=== PATIENT | male | born 1940 | race Caucasian/White ===

== ENCOUNTER 2017-10-08 10:25 | Emergency (ER) | payer MEDICARE, MEDICAID ==
[2017-10-08 10:34] VITALS: TEMP 97.9
[2017-10-08] MEDS ORDERED: Piperacillin/Tazobact 3.375 GM in Sodium Chloride 100 ML IVPB SCH (11:15)
[2017-10-08 11:32] LABS: BASO % 0.5 % (0.0-2.0); EOS # 0.1 K/uL (0.0-0.7); EOS % 2.2 % (0.0-4.0); HEMATOCRIT 38.8 % (35.0-51.0); LYMPH % 15.8 % (20.0-40.0); MEAN CELL VOLUME 100.1 fL (80.0-94.0); MEAN CORPUSCULAR HGB CONC 33.9 g/dL (33.0-37.0); MONO # 0.6 K/uL (0.0-0.8); MONO % 9.4 % (0.0-10.0); NRBC % 0.1 % (0.0-2.0); RED CELL DISTRIBUTION WIDTH 14.2 % (11.5-14.5); WHITE BLOOD COUNT 6.1 K/uL (4.8-10.8)
--- NOTE | 2017-10-08 11:39 | C.PDOC ---
History Of Present Illness 77 y/o male presents to ED with c/o gradually increasing mass to the right groin region for 2 weeks. Patient reports drainage of bloody pus from the area yesterday. Denies fever, chills, urinary symptoms, nausea, vomiting, diarrhea. Patients states he has not take medications for current symptoms. PMD: Dr. Maloney Time Seen by Provider: 10/08/17 11:09 Chief Complaint (Nursing): Abnormal Skin Integrity History Per: Patient History/Exam Limitations: no limitations Onset/Duration Of Symptoms: Days Current Symptoms Are (Timing): Still Present Quality Of Symptoms: Swollen, Draining Recent travel outside of the [place]: No Past Medical History Reviewed: Historical Data, Nursing Documentation, Vital Signs Vital Signs: Last Vital Signs Temp 97.9 F 10/08/17 10:31 Pulse 72 10/08/17 10:31 Resp 18 10/08/17 10:31 BP 125/82 10/08/17 10:31 Pulse Ox 100 10/08/17 14:02 - Medical History PMH: Anxiety, HTN, Hypercholesterolemia, Hypothyroidism Surgical History: Coronary Stent - [facility] Procedures CLOSED ENDOSCOPIC BIOPSY OF LARGE INTESTINE (02/19/14) - Social History Hx Alcohol Use: No Hx Substance Use: No - Immunization History Hx Tetanus Toxoid Vaccination: Yes Hx Influenza Vaccination: Yes Hx Pneumococcal Vaccination: Yes Review Of Systems Except As Marked, All Systems Reviewed And Found Negative. Constitutional: Negative for: Fever, Chills Gastrointestinal: Negative for: Nausea, Vomiting, Abdominal Pain, Diarrhea Genitourinary: Negative for: Dysuria, Hematuria Skin: Positive for: Other (skin changes R groin). Negative for: Rash Physical Exam - Physical Exam Appears: Non-toxic, No Acute Distress Skin: Warm, Dry, Other (Right testicular area: erythematous, fluctuant mass, no sign of Ana's gangrene) Head: Atraumatic, Normacephalic Chest: Symmetrical Cardiovascular: Rhythm Regular Respiratory: Normal Breath Sounds, No Rales, No Rhonchi, No Wheezing Gastrointestinal/Abdominal: Soft, No Tenderness, No Guarding, No Rebound Back: Normal Inspection Extremity: Normal ROM, Capillary Refill (< 2 sec.) Neurological/Psych: Oriented x3, Normal Speech, Normal Cognition ED Course And Treatment - Laboratory Results Result Diagrams: 10/08/17 11:28 10/08/17 11:28 O2 Sat by Pulse Oximetry: 100 (RA) Pulse Ox Interpretation: Normal - CT Scan/US Testicular Ultrasound Other Rad Studies (CT/US): Read By Radiologist, Radiology Report Reviewed CT/US Interpretation: FINDINGS: RIGHT TESTICLE: Measures 4.5 x 1.6 x 2.7 cm. Normal echotexture and flow. Small nonspecific hypoechoic area measuring 0.6 x 0.5 x 1.0 centimeter. Testicular appendage noted. RIGHT EPIDIDYMIS: Not visualized. LEFT TESTICLE: Measures 4.0 x 1.5 x 2.1 cm. Normal echotexture and flow. LEFT EPIDIDYMIS: Epididymal head measures 0.5 x 0.6 x 0.8 cm. Grossly unremarkable appearance with normal flow. HYDROCELE: Large right hydrocele. VARICOCELE: None. OTHER FINDINGS: Small cystic area in the left hemiscrotum measuring 1.3 x 0.5 x 0.7 centimeter. IMPRESSION: No evidence of testicular torsion. Large right scrotal hydrocele. Nonspecific 1 centimeter hypoechoic area in the right testicle. Medical Decision Making Medical Decision Making: Assessment: scrotal abscess Plan: Labs, culture, testicular ultrasound. IV abx and Toradol given. Disposition Counseled Patient/Family Regarding: Studies Performed, Diagnosis, Need For Followup, Rx Given - Disposition Referrals: Salazar Gomez Jr., MD [Staff Provider] - Disposition: HOME/ ROUTINE Disposition Time: 15:09 Condition: IMPROVED Additional Instructions: follow up with urologist in 2 days call to make an appointment take medications as prescribed return to hospital if symptoms worsens or progress Prescriptions: Amoxicillin/Clavulanate [Augmentin 875 MG-125 MG] 1 tab PO BID #20 tab Naproxen [Naprosyn] 500 mg PO BID PRN #16 tab PRN Reason: Pain, Moderate (4-7) Sulfamethoxazole/Trimethoprim [Bactrim DS 800 mg-160 mg] 1 tab PO BID #20 tab Instructions: Hydrocele (ED), Cellulitis (DC) Forms: [facility] (Mongolian), General Discharge Instructions - Clinical Impression Clinical Impression: Cellulitis, Hydrocele - Scribe Statement The provider has reviewed the documentation as recorded by the Scribe SM All medical record entries made by the Scribe were at my direction and personally dictated by me. I have reviewed the chart and agree that the record accurately reflects my personal performance of the history, physical exam, medical decision making, and the department course for this patient. I have also personally directed, reviewed, and agree with the discharge instructions and disposition.
[2017-10-08 11:53] LABS: ALB/GLOB RATIO 1.2 (1.0-2.1); ALKALINE PHOSPHATASE 56 U/L (38-126); ALT/SGPT 46 U/L (21-72); AST/SGOT 22 U/L (17-59); BILIRUBIN,TOTAL 1.3 mg/dL (0.2-1.3); BLOOD UREA NITROGEN 13 mg/dL (9-20); CALCIUM 8.2 mg/dl (8.6-10.4); CARBON DIOXIDE 26 mmol/L (22-30); CHLORIDE 98 mmol/L (98-107); GFR AFRICAN-AMERICAN > 60; GLUCOSE,RANDOM 134 mg/dL (75-110); POTASSIUM 4.1 mmol/L (3.6-5.2); SODIUM 133 mmol/L (132-148); TOTAL PROTEIN 6.9 g/dL (6.3-8.3)
[2017-10-08 12:11] LABS: RBC URINE 1 /hpf (0-3); URINE BILIRUBIN NEGATIVE (NEGATIVE); URINE BLOOD NEGATIVE (NEGATIVE); URINE COLOR Yellow (YELLOW); URINE GLUCOSE (UA) NORMAL (Normal); URINE KETONE NEGATIVE (NEGATIVE); URINE LEUKOCYTE ESTERASE NEG Leu/uL (Negative); URINE PROTEIN NEGATIVE (NEGATIVE); URINE UROBILINOGEN NORMAL mg/dL (0.2-1.0)
[2017-10-08] MEDS ORDERED: Piperacill/Tazo 3.375gm in Dex 3.375 GM/50 ML BAG IVPB SCH (13:00)
--- NOTE | 2017-10-08 13:23 | US ---
HISTORY: scrotal pain TECHNIQUE: Realtime sonography through the scrotum with color and doppler flow. COMPARISON: None Available. FINDINGS: RIGHT TESTICLE: Measures 4.5 x 1.6 x 2.7 cm. Normal echotexture and flow. Small nonspecific hypoechoic area measuring 0.6 x 0.5 x 1.0 centimeter. Testicular appendage noted. RIGHT EPIDIDYMIS: Not visualized. LEFT TESTICLE: Measures 4.0 x 1.5 x 2.1 cm. Normal echotexture and flow. LEFT EPIDIDYMIS: Epididymal head measures 0.5 x 0.6 x 0.8 cm. Grossly unremarkable appearance with normal flow. HYDROCELE: Large right hydrocele. VARICOCELE: None. OTHER FINDINGS: Small cystic area in the left hemiscrotum measuring 1.3 x 0.5 x 0.7 centimeter. IMPRESSION: No evidence of testicular torsion. Large right scrotal hydrocele. Nonspecific 1 centimeter hypoechoic area in the right testicle.
[2017-10-08 15:26] VITALS: BP 103/64; PULSE 75; RESP 16; O2SAT 97
== END 2017-10-08 15:49 | disposition home or self-care (01) ==
LOC: C.ER 10:25
DX: N49.2 Inflammatory disorders of scrotum (principal); N43.3 Hydrocele, unspecified
CPT/HCPCS: 76870; 80053; 81001; 83690; 85025; 87040; 87070; 87181; 96365; 96375; 99285; J1885; J2543

== ENCOUNTER 2017-10-21 10:28 | Day surgery (SDC) | payer MEDICARE, MEDICAID ==
[2017-10-18 09:06] VITALS: BMI 23.0
[2017-10-21] MEDS ORDERED: ceFAZolin IV 1 gm in Dextrose 1 GM/50 ML BAG IVPB ONE (12:22)
[2017-10-21] MEDS ORDERED: Bacitracin 500 Units/gm Oint Foilpak UD ONE (12:22)
[2017-10-21] MEDS ORDERED: Bupivacaine HCl 0.5% PF (10 ml) Inj ONE (12:22)
[2017-10-21] MEDS ORDERED: Lidocaine 1% Inj (20ml) ONE (12:22)
[2017-10-21] MEDS ORDERED: Midazolam 2 MG/2 ML VIAL ONE (12:42)
[2017-10-21] MEDS ORDERED: Propofol 10 mg/ml Inj (20 ML) ONE (12:43)
[2017-10-21] MEDS ORDERED: Lactated Ringer's 1,000 ML IV ONE ×2 (13:20→15:30)
[2017-10-21] MEDS ORDERED: Lactated Ringer's 1,000 ML IV SCH (14:45)
--- NOTE | 2017-10-21 14:45 | PCM.SURG1 ---
Surgeon's Initial Post Op Note - Surgeon's Notes Surgeon: Jason Religious Education Director: Luisana Type of Anesthesia: General LMA Anesthesia Administered By: staff Pre-Operative Diagnosis: Bilat hydrocele Infected Operative Findings: Right hydrocele fibrosis of hydrocele sac consistant with prior infection Post-Operative Diagnosis: Right hydrocele Operation Performed: Right hydrocelectomy Specimen/Specimens Removed: hydrocele sac Estimated Blood Loss: EBL {In ML}: 0 Blood Products Given: N/A Drains Used: No Drains Post-Op Condition: Good Date of Surgery/Procedure: 10/21/17 Time of Surgery/Procedure: 14:46
[2017-10-21] MEDS: HYDROmorphone 0.5 mg/0.5 ml ISec IVP PRN ×2 (14:54→15:26)
[2017-10-21 16:07] VITALS: RESP 18; TEMP 97
[2017-10-21 16:41] VITALS: BP 128/73; PULSE 78; O2SAT 100
--- NOTE | 2017-10-24 07:28 | OP ---
PROCEDURE DATE: 10/21/2017 PREOPERATIVE DIAGNOSIS: Bilateral hydrocele. POSTOPERATIVE DIAGNOSIS: Right hydrocele/infected. DESCRIPTION OF PROCEDURE: The procedure is as follows; the patient was asked to sign a detailed informed consent prior to the procedure. He is aware of the risks, complications and limitations of this procedure. He is aware that the hydroceles may not be bilateral. He was apprised of alternate methods of managing hydrocele and elected to proceed with surgery and accepted the risks. He was brought into the room and draped and prepped in the usual manner. A time-out was taken according to the rules and regulations of [facility] and the patient was entered through a median raphe incision. This was carried down to the subcutaneous tissues. The right hemiscrotum was entered first. There was a large hydrocele, which appeared somewhat attached to the scrotal skin. This was dissected free of all its fibrous attachments and exteriorized. The hydrocele sac was opened. The clear fluid drained. There was no active pus. The hydrocele sac wall appeared somewhat thickened consistent with previous infection. The hydrocele sac was excised and the cut edges were oversewn with 3-0 chromic suture in a discontinuous fashion. Meticulous hemostasis was achieved. The testicle was then placed back in the scrotum in a proper orientation, tacked to the scrotal wall and the area was irrigated with the antibiotic solution. The scrotal wall was then closed in a 2-layer fashion, discontinuous 3-0 chromic in both layers. The patient tolerated the procedure well. A dry sterile dressing with scrotal support was placed. He was sent to the recovery room in good condition. Salazar Gomez MD
== END 2017-10-21 19:02 | disposition home or self-care (01) ==
LOC: C.SDS 10:28
PROVIDERS: ATTEND Urology
DX: N43.1 Infected hydrocele (principal)
CPT/HCPCS: 55040; 88302; J0690; J1170; J2704; J3010; J7120

== ENCOUNTER 2018-03-17 12:21 | Emergency (ER) | payer MEDICARE, MEDICAID ==
[2018-03-17 12:21] VITALS: BMI 23.0
[2018-03-17 14:02] LABS: URINE BILIRUBIN NEGATIVE (NEGATIVE); URINE BLOOD NEGATIVE (NEGATIVE); URINE CLARITY Clear (Clear); URINE COLOR Yellow (YELLOW); URINE GLUCOSE (UA) NORMAL (Normal); URINE LEUKOCYTE ESTERASE NEG Leu/uL (Negative); URINE PROTEIN NEGATIVE (NEGATIVE); URINE UROBILINOGEN NORMAL mg/dL (0.2-1.0)
--- NOTE | 2018-03-17 14:08 | C.PDOC ---
History Of Present Illness 78 y/o male, w/PMhx of CAD, HTN, and hypercholesterolemia presents to the ER complaining of weakness which has been present for the 2 weeks. Patient is also complaining of fever and headache. Patient does not have other complaints at this time. Time Seen by Provider: 03/17/18 13:53 Chief Complaint (Nursing): Fever History Per: Patient History/Exam Limitations: no limitations Onset/Duration Of Symptoms: Days Severity: Moderate Past Medical History Reviewed: Historical Data, Nursing Documentation, Vital Signs Vital Signs: Last Vital Signs Temp 98.1 F 03/17/18 19:44 Pulse 84 03/17/18 19:44 Resp 18 03/17/18 19:44 BP 149/77 03/17/18 19:44 Pulse Ox 98 03/18/18 00:51 - Medical History PMH: Anxiety, HTN, Hypercholesterolemia, Hypothyroidism ('resolved') Denies: Chronic Kidney Disease Surgical History: No Surg Hx, Coronary Stent (2011), Endoscopy - [facility] Procedures CLOSED ENDOSCOPIC BIOPSY OF LARGE INTESTINE (02/19/14) Family History: States: No Known Family Hx - Social History Hx Alcohol Use: No Hx Substance Use: No - Immunization History Hx Tetanus Toxoid Vaccination: No Hx Influenza Vaccination: Yes Hx Pneumococcal Vaccination: Yes Review Of Systems Except As Marked, All Systems Reviewed And Found Negative. Constitutional: Positive for: Fever, Weakness. Negative for: Chills Eyes: Negative for: Pain, Vision Change ENT: Positive for: Throat Pain. Negative for: Ear Pain, Ear Discharge, Nose Pain, Nose Discharge, Nose Congestion, Mouth Pain, Mouth Swelling, Throat Swelling, Other Cardiovascular: Positive for: Light Headedness. Negative for: Chest Pain, Palpitations, Orthopnea, Paroxysmal Noc. Dyspnea, Edema Respiratory: Positive for: Cough. Negative for: Shortness of Breath, Hemoptysis , SOB with Excertion, Pleuritic Pain, Sputum, Wheezing Gastrointestinal: Negative for: Nausea, Vomiting, Abdominal Pain, Constipation, Melena, Hematochezia, Rectal Pain Genitourinary: Negative for: Dysuria, Frequency, Hematuria Musculoskeletal: Negative for: Neck Pain, Shoulder Pain, Back Pain Skin: Negative for: Rash, Lesions Neurological: Positive for: Headache. Negative for: Weakness, Numbness, Confusion Psych: Negative for: Anxiety Physical Exam - Physical Exam Appears: Non-toxic, No Acute Distress Skin: Normal Color, Warm, Dry Head: Atraumatic, Normacephalic Eye(s): bilateral: Normal Inspection, PERRL, EOMI Ear(s): Bilateral: Normal Nose: Normal, No Epistaxis, No Deformity Oral Mucosa: Moist Tongue: Normal Appearing Lips: Normal Appearing Teeth: Normal Dentition Gingiva: Normal Appearing Throat: Normal Neck: Normal, Normal ROM, Supple Chest: Symmetrical Cardiovascular: Rhythm Regular Respiratory: Normal Breath Sounds, No Rales, No Rhonchi, No Wheezing Gastrointestinal/Abdominal: Normal Exam, Bowel Sounds, Soft, No Tenderness, No Organomegaly, No Mass, No Distention, No Guarding Rectal: Deferred Back: Normal Inspection, No CVA Tenderness, No Vertebral Tenderness, No Decreased ROM, No Muscle Spasm, No Paraspinal Tenderness Extremity: Normal ROM Extremity: Bilateral: No Pedal Edema, Normal Color And Temperature, Normal ROM Neurological/Psych: Oriented x3, Normal Speech Gait: Steady ED Course And Treatment - Laboratory Results Result Diagrams: 03/17/18 15:33 03/17/18 15:33 ECG: Interpreted By Me, Viewed By Me ECG Rhythm: Sinus Bradycardia Rate From EC O2 Sat by Pulse Oximetry: 98 (RA) Pulse Ox Interpretation: Normal - Other Rad CXR X-Ray: Viewed By Nm, Read By Radiologist Interpretation: HISTORY: Sepsis Patient. COMPARISON: Comparison chest 2017. TECHNIQUE: Chest PA and lateral. FINDINGS: LUNGS: No definitive acute consolidation. PLEURA: No significant pleural effusion identified. No pneumothorax apparent. CARDIOVASCULAR: Apparent coronary artery calcifications. OSSEOUS STRUCTURES: Minor multilevel degenerative spondylosis of the thoracic spine. Minor chronic anterior stature loss of 2 lower thoracic segments. VISUALIZED UPPER ABDOMEN: Normal. OTHER FINDINGS: None. IMPRESSION: No active disease. Progress Note: Labs,UA, ECG, and CXR ordered. Patient given Toradol IV. Medical Decision Making Medical Decision Making: labs /cxr ekg ordered toradol and tylenol for headache flu ordered and neg cxr neg labs unremarkable' pt with cough duonoebs with relief and first dose of azithromycin given pt will be dc to home and to follow up with pmd Disposition Counseled Patient/Family Regarding: Diagnosis, Need For Followup, Rx Given - Disposition Referrals: Robert Maloney DO [Staff Provider] - Disposition: HOME/ ROUTINE Disposition Time: 18:49 Condition: GOOD Additional Instructions: return if symptoms worsen Prescriptions: Albuterol Sulfate [Proair Respiclick] 90 mcg IH Q4 30 Days #1 [email or web address] Azithromycin 250 mg PO DAILY 4 Days #4 tablet Instructions: Pneumonia in Adults, Atypical Pneumonia (Mycoplasma and Viral) ( DC), Community-Acquired Pneumonia, Adult (DC) Forms: Phonitive - [employer] (Kinyarwanda) - Clinical Impression Clinical Impression: Influenza-like illness, Atypical pneumonia - Scribe Statement The provider has reviewed the documentation as recorded by the Rachel Mckeon Provider Attestation: All medical record entries made by the Rachel were at my direction and personally dictated by me. I have reviewed the chart and agree that the record accurately reflects my personal performance of the history, physical exam, medical decision making, and the department course for this patient. I have also personally directed, reviewed, and agree with the discharge instructions and disposition.
--- NOTE | 2018-03-17 15:35 | RAD ---
HISTORY: Sepsis Patient COMPARISON: Comparison chest 11/12/2017 TECHNIQUE: Chest PA and lateral FINDINGS: LUNGS: No definitive acute consolidation. PLEURA: No significant pleural effusion identified. No pneumothorax apparent. CARDIOVASCULAR: Apparent coronary artery calcifications OSSEOUS STRUCTURES: Minor multilevel degenerative spondylosis of the thoracic spine. Minor chronic anterior stature loss of 2 lower thoracic segments VISUALIZED UPPER ABDOMEN: Normal. OTHER FINDINGS: None. IMPRESSION: No active disease.
[2018-03-17 15:37] LABS: BASO # 0.1 K/uL (0.0-0.2); BASO % 1.8 % (0.0-2.0); EOS % 0.5 % (0.0-4.0); HEMOGLOBIN 15.1 g/dL (12.0-18.0); LYMPH # 1.3 K/uL (1.0-4.3); LYMPH % 28.4 % (20.0-40.0); MEAN CORPUSCULAR HEMOGLOBIN 32.6 pg (27.0-31.0); MEAN CORPUSCULAR HGB CONC 34.3 g/dL (33.0-37.0); MEAN PLATELET VOLUME 8.2 fL (7.2-11.7); MONO # 0.5 K/uL (0.0-0.8); MONO % 10.2 % (0.0-10.0); NEUT # 2.8 K/uL (1.8-7.0); NEUT % 59.1 % (50.0-75.0); NRBC % 0.1 % (0.0-2.0); RBC 4.64 Mil/uL (4.40-5.90); RED CELL DISTRIBUTION WIDTH 13.6 % (11.5-14.5); WHITE BLOOD COUNT 4.7 K/uL (4.8-10.8)
[2018-03-17 15:38] LABS: VENOUS BLOOD GAS BASE EXCESS 0.4 mmol/L (0.0-2.0); VENOUS BLOOD GAS PCO2 57 mmHg (40-60); VENOUS BLOOD GAS PO2 22 mm/Hg (30-55)
[2018-03-17 15:49] LABS: ALB/GLOB RATIO 0.9 (1.0-2.1); ALBUMIN 4.5 g/dL (3.5-5.0); ALT/SGPT 66 U/L (21-72); AST/SGOT 52 U/L (17-59); BLOOD UREA NITROGEN 15 mg/dL (9-20); CALCIUM 9.3 mg/dl (8.6-10.4); GFR AFRICAN-AMERICAN > 60; GFR NON-AFRICAN AMERICAN > 60
[2018-03-17] MEDS ORDERED: Albuterol-Ipratrop 3 mg / 0.5 (3 ml) UD INH STA (17:42)
[2018-03-17] MEDS ORDERED: Azithromycin 500 MG in Sodium Chloride 0.9% 250 ML IVPB STA (17:43)
[2018-03-17] MEDS ORDERED: Albuterol-Ipratrop 3 mg / 0.5 (3 ml) UD ONE (18:07)
[2018-03-17] MEDS ORDERED: Albuterol HFA 90 mcg/actuation (8 g) INH PRN (18:51)
[2018-03-17 19:46] VITALS: BP 149/77; PULSE 84; RESP 18; TEMP 98.1
[2018-03-18 00:45] VITALS: O2SAT 98
--- NOTE | 2018-03-18 12:45 | CARD ---
APPROVED REPORT EKG Measurement Heart [id number] <Conclusion> Sinus bradycardia Otherwise normal ECG
== END 2018-03-17 19:50 | disposition home or self-care (01) ==
LOC: C.ER 12:21
DX: J18.9 Pneumonia, unspecified organism (principal); J11.1 Influenza due to unidentified influenza virus with other respiratory manifestations; E78.00 Pure hypercholesterolemia, unspecified; I10 Essential (primary) hypertension; I25.10 Atherosclerotic heart disease of native coronary artery without angina pectoris
CPT/HCPCS: 71046; 80053; 81001; 82803; 83735; 85025; 87086; 87804; 93005; 94640; 96365; 96375; 99285; J0456; J1885; J7050

== ENCOUNTER → 2018-10-23 | Day surgery (SDC) | payer MEDICARE, MEDICAID ==
[2018-10-09 07:52] VITALS: BMI 23.1
[~2018-10-23] MED LIST: Carbachol 0.01% IO ONE; Chondroitin/Hyaluronate 40 mg/ml-30 mg/ml Ophth Syringe (0.5 ml) IO ONE; Chondroitin/Hyaluronate Opth Syringe KIT (0.55 ml-0.5 ml) IO ONE; Hyaluronidase Human, Recombi 150 U/ML VIAL ONE; Lactated Ringer's 500 ML IV ONE; Lidocaine 2% MPF (5 ml) Inj ONE; Midazolam 2 MG/2 ML VIAL ONE; Phenylephrine 2.5% Opht Soln OD SCH; Povidone Iodine Ophthalmic 5% Soln ONE; Propofol 10 mg/ml Inj (20 ML) ONE; Tobramycin/Dexamethasone OPHT OINT ONE; Tropicamide 0.5% Opht Sol OD SCH
[2018-10-23 12:02] VITALS: BP 135/74; PULSE 68; RESP 17; TEMP 97.8; O2SAT 99
--- NOTE | 2018-10-24 13:44 | OP ---
PROCEDURE DATE: 10/23/2018 PREOPERATIVE DIAGNOSIS: Matured nuclear cataract, right eye. POSTOPERATIVE DIAGNOSIS: Matured nuclear cataract, right eye. PROCEDURE: Cataract extraction with lens implant, right eye. SURGEON: Tony Vergara MD. ANESTHESIOLOGIST: Retrobulbar block. COMPLICATIONS: None. DESCRIPTION OF PROCEDURE: PROCEDURE: The patient was brought to the operating room and properly identified. Anesthesia staff administered intravenous sedation and retrobulbar block was given to the surgical eye. The patient was then prepped and draped in the usual sterile fashion. Attention was turned to the surgical eye. A lid speculum was placed into interpalpebral fissure. Sitting temporally, two paracentesis incisions were made. The anterior chamber was filled with viscoelastic and a triplanar clear corneal incision was made. Using a cystitome, anterior capsular leaflet was created. Utrata forceps were used to create a continuous curvilinear capsulorrhexis. Balanced salt solution on a cannula was used to hydrodissect and hydrodelineate the lens. The lens was then phacoemulsified with no complications. Automated irrigation and aspiration was used to remove the cortex. Viscoelastic was used to deepen the anterior chamber. The lens was placed in the capsular bag. Automated irrigation and aspiration was used to remove the viscoelastic. The anterior chamber was filled with Miochol. The wounds were hydrated with balanced salt solution. There was noted to be no leak at the end of the case and the lens was well positioned. The lid speculum was removed. The eye was given antibiotics and steroids and covered with a patch and shield. The patient was returned to the recovery room in stable condition. Tony Vergara MD
== END | disposition home or self-care (01) ==
LOC: C.SDS 08:00
PROVIDERS: ATTEND Ophthalmology
DX: H25.13 Age-related nuclear cataract, bilateral (principal)
CPT/HCPCS: 66984; J2250; J2704; J3470; J7120; V2632

== ENCOUNTER 2019-04-08 08:28 | Outpatient (CLI) | payer MEDICARE, MEDICAID | END 2019-04-08 08:29 | disposition home or self-care (01) | LOC: C.USIC 08:28 ==